=== PATIENT | female | born 1995 | race Caucasian/White ===

== ENCOUNTER 2023-01-05 07:12 | Emergency (ER) | payer BC ==
[~2023-01-05] VITALS: Ht 162.6 cm; Wt 36.3 kg
[2023-01-05 07:19] VITALS: BP_SYST 121
[2023-01-05] MEDS ORDERED: ALPRAZolam 0.25 MG TABLET PO ONE (07:30)
[2023-01-05] MEDS ORDERED: ALPRAZolam 0.25 MG TABLET ONE (07:40)
[2023-01-05 08:40] VITALS: BP_SYST 124
== END 2023-01-05 08:53 | disposition home or self-care (01) ==
LOC: SED 07:12
DX: F41.9 Anxiety disorder, unspecified (principal)
CPT/HCPCS: 71045; 81025; 93005; 99283